=== PATIENT | female | born 1985 | race African-American/Black ===

== ENCOUNTER 2016-05-19 07:17 | Emergency (ER) | payer OTHER ==
[~2016-05-19] VITALS: Ht 162.6 cm; Wt 92.5 kg
[~2016-05-19 07:17] MED LIST: BENADRYL50 MG PO; DOXYCYCLINE HY100 MG PO; FLEXERIL10 MG PO; HYCODAN SYRUP480 ML PO; KLONOPIN0.5 M1 PO; MOTRIN800 MG PO; ROBITUSSIN AC,T10 ML PO; VENTOLIN HFA18 GM IH
[2016-05-19] MEDS ORDERED: FLONASE16 G1 BOTH NARES (09:10)
[2016-05-19] MEDS ORDERED: ROBITUSSIN NIG118 ML PO (09:10)
[2016-05-19] MEDS ORDERED: MUCUS ER600 MG PO (09:10)
[2016-05-19] MEDS ORDERED: IBUPROFEN800 MG PO (09:10)
[2016-05-19] MEDS ORDERED: TESSALON PERLE100 MG PO (09:10)
[2016-05-19 09:23] VITALS: BP 104/68
== END 2016-05-19 09:26 | disposition home or self-care (01) ==
LOC: EME 07:17
DX: J06.9 Acute upper respiratory infection, unspecified (principal); J00 Acute nasopharyngitis [common cold]; B97.89 Other viral agents as the cause of diseases classified elsewhere
CPT/HCPCS: 87651 90; 99281; 99284; J1885

== ENCOUNTER 2017-01-18 21:36 | Emergency (ER) | payer OTHER ==
[~2017-01-18] VITALS: Ht 160 cm; Wt 93.3 kg
[~2017-01-18 21:36] MED LIST changes: +FLONASE16 G1 BOTH NARES; +IBUPROFEN800 MG PO; +MUCUS ER600 MG PO; +ROBITUSSIN NIG118 ML PO; +TESSALON PERLE100 MG PO
[2017-01-18 21:42] VITALS: BP 108/78
[2017-01-18] MEDS ORDERED: MOTRIN600 MG PO (22:38)
== END 2017-01-18 22:55 | disposition home or self-care (01) ==
LOC: EME 21:36
DX: S80.12XA Contusion of left lower leg, initial encounter (principal); V47.5XXA Car driver injured in collision with fixed or stationary object in traffic accident, initial encounter; Y92.481 Parking lot as the place of occurrence of the external cause
CPT/HCPCS: 73590; 99281; 99283

== ENCOUNTER 2017-06-26 12:57 | Observation (INO) | payer OTHER ==
[~2017-06-26] VITALS: Ht 160 cm; Wt 91.6 kg
[~2017-06-26 12:57] MED LIST changes: +MOTRIN600 MG PO
[2017-06-26 17:00] LABS: CHLORIDE 107 mEq/L (99-109); POTASSIUM 3.6 mEq/L (3.7-5.4); SODIUM 138 mEq/L (136-147)
[2017-06-26 17:02] LABS: GLUCOSE 92 mg/dL (70-99)
[2017-06-26 17:06] LABS: CREATININE 0.7 mg/dL (0.6-1.3); GFR ESTIMATE (CALCULATED) > 59 mL/min/
[2017-06-26 17:07] LABS: UREA NITROGEN (BUN) 9 mg/dL (9-23)
[2017-06-26 17:08] LABS: HEMATOCRIT 17.1 % (36.0-46.0); HEMOGLOBIN 4.4 G/DL (11.9-15.5); MCH 17.1 PG (29.0-34.0); MCHC 25.7 G/DL (30.0-36.0); MCV 66.3 FL (83-99); NRBC (%) 0.3 /100 WBC (0-0); PLATELET COUNT 605 K/uL (156-360); RBC DIS.WIDTH-CV 33.7 % (11.8-14.6); RBC DIS.WIDTH-SD 78.6 % (39-53); RED BLOOD COUNT 2.58 M/uL (3.80-5.20); WHITE BLOOD COUNT 8.9 K/uL (4.1-10.2)
[2017-06-26 17:34] LABS: TROP-I INTERPRETATION NEGATIVE; TROPONIN-I < 0.01 ng/mL (0.0-0.30)
[2017-06-26 19:15] LABS: INTER. NORMALIZED RATIO 1.1
[2017-06-26 19:16] LABS: ALBUMIN 4.3 g/dL (3.2-4.8)
[2017-06-26 19:18] LABS: PTT 28.2 SEC (25-37)
[2017-06-26 19:19] LABS: TOTAL PROTEIN 7.2 g/dL (6.4-8.3)
[2017-06-26 19:21] LABS: TOTAL BILIRUBIN 1.1 mg/dL (0.0-1.0)
[2017-06-26 19:22] LABS: ALKALINE PHOSPHATASE 51 IU/L (3-129)
[2017-06-26] MEDS ORDERED: MOTRIN800 MG PO (19:23)
[2017-06-26 19:24] LABS: AST (GOT) 11 IU/L (2-34); DIRECT BILIRUBIN 0.4 mg/dL (0.0-0.3)
[2017-06-26 19:25] LABS: ALT (GPT) 5 IU/L (3-49)
[2017-06-26 22:25] VITALS: BP 124/73
[2017-06-26 23:08] VITALS: BP 108/56
[2017-06-27] VITALS (16 sets, daily range): BP systolic 112–129; BP diastolic 57–81
[2017-06-27 05:00] LABS: CHLORIDE 110 mEq/L (99-109); POTASSIUM 3.3 mEq/L (3.7-5.4); SODIUM 139 mEq/L (136-147)
[2017-06-27 05:01] LABS: GLUCOSE 97 mg/dL (70-99)
[2017-06-27 05:05] LABS: CREATININE 0.7 mg/dL (0.6-1.3); GFR ESTIMATE (CALCULATED) > 59 mL/min/
[2017-06-27 05:06] LABS: UREA NITROGEN (BUN) 5 mg/dL (9-23)
[2017-06-27 05:08] LABS: TROP-I INTERPRETATION NEGATIVE; TROPONIN-I < 0.01 ng/mL (0.0-0.30)
[2017-06-27 09:31] LABS: HEMATOCRIT 24.7 % (36.0-46.0)
[2017-06-27 09:37] LABS: MCV 73.3 FL (83-99)
[2017-06-27 13:01] LABS: SOURCE URINE
[2017-06-27 20:02] LABS: HEMATOCRIT 29.4 % (36.0-46.0); HEMOGLOBIN 8.8 G/DL (11.9-15.5); MCV 75.6 FL (83-99)
[2017-06-28 06:02] LABS: HEMATOCRIT 31.9 % (36.0-46.0); HEMOGLOBIN 9.2 G/DL (11.9-15.5); MCHC 28.8 G/DL (30.0-36.0); MCV 76.5 FL (83-99); NRBC (%) 0.5 /100 WBC (0-0); PLATELET COUNT 631 K/uL (156-360); RBC DIS.WIDTH-CV 29.7 % (11.8-14.6); RBC DIS.WIDTH-SD 78.1 % (39-53); WHITE BLOOD COUNT 10.6 K/uL (4.1-10.2)
[2017-06-28 06:14] LABS: MCH 22.1 PG (29.0-34.0); RED BLOOD COUNT 4.17 M/uL (3.80-5.20)
[2017-06-28 06:29] LABS: CHLORIDE 108 MEQ/L (99-109); CREATININE 0.8 MG/DL (0.6-1.3); GFR ESTIMATE (CALCULATED) > 59 mL/min/; GLUCOSE 94 mg/dL (70-99); SODIUM 141 MEQ/L (136-147); UREA NITROGEN (BUN) 5 mg/dL (9-23)
[2017-06-28 06:30] LABS: POTASSIUM 4.2 MEQ/L (3.7-5.4)
[2017-06-28 07:00] LABS: TROP-I INTERPRETATION NEGATIVE; TROPONIN-I < 0.01 ng/mL (0.0-0.30)
[2017-06-28 08:22] VITALS: BP 128/67
[2017-06-28] MEDS ORDERED: FERROUS SULFAT325 MG PO (11:36)
[2017-06-28] MEDS ORDERED: DULCOLAX10 MG PR (11:36)
[2017-06-28] MEDS ORDERED: ASCORBIC ACID500 M3 PO (11:36)
[2017-06-28] MEDS ORDERED: COLACE100 MG PO (11:36)
[2017-06-28 12:53] VITALS: BP 129/67
[2017-06-28 14:29] LABS: LYME DISEASE SEROLOGY SCREEN NEGATIVE (NEGATIVE)
[2017-06-29 13:19] LABS: CHLAMYDIA TRACHOMATIS NEGATIVE; NEISSERIA GONORRHOEAE NEGATIVE
== END 2017-06-28 17:14 | disposition home or self-care (01) ==
LOC: EME 12:57 → EDOF 20:18 → 5SOUTH 20:18 → ENRESERV 20:29 → 5SOUTH 21:52
PROVIDERS: Hospitalist; Internal Medicine; Internal Medicine Cardiovascular Disease; Nurse Practitioner Family; Obstetrics & Gynecology
PROC: 30233N1 Transfusion of Nonautologous Red Blood Cells into Peripheral Vein, Percutaneous Approach (ICD-10-PCS; principal; 2017-06-26)
DX: D64.9 Anemia, unspecified (principal); N92.0 Excessive and frequent menstruation with regular cycle; K59.00 Constipation, unspecified; I44.1 Atrioventricular block, second degree; D69.6 Thrombocytopenia, unspecified; R51 Headache; R42 Dizziness and giddiness; R07.89 Other chest pain
CPT/HCPCS: 70450; 71046; 74018; 76856; 80048; 80076; 84443; 84484; 84702; 85014; 85018; 85027; 85610; 85730; 86618; 86850; 86900; 86901; 86920; 87491; 87591; 93005; 93306; 99281; 99285; G0378; J7030; P9016

== ENCOUNTER 2017-10-27 05:16 | Emergency (ER) | payer OTHER ==
[~2017-10-27] VITALS: Ht 157.5 cm; Wt 100.4 kg
[~2017-10-27 05:16] MED LIST changes: +ASCORBIC ACID500 M3 PO; +COLACE100 MG PO; +DULCOLAX10 MG PR; +FERROUS SULFAT325 MG PO
[2017-10-27 06:19] LABS: HEMATOCRIT 32.9 % (36.0-46.0); HEMOGLOBIN 9.7 G/DL (11.9-15.5); MCH 21.3 PG (29.0-34.0); MCHC 29.5 G/DL (30.0-36.0); MCV 72.1 FL (83-99); PLATELET COUNT 369 K/uL (156-360); RBC DIS.WIDTH-CV 18.3 % (11.8-14.6); RBC DIS.WIDTH-SD 46.8 % (39-53); RED BLOOD COUNT 4.56 M/uL (3.80-5.20); WHITE BLOOD COUNT 8.8 K/uL (4.1-10.2)
[2017-10-27 06:25] LABS: ALBUMIN 3.9 g/dL (3.2-4.8); CHLORIDE 108 mEq/L (99-109); POTASSIUM 3.8 mEq/L (3.7-5.4); SODIUM 138 mEq/L (136-147)
[2017-10-27 06:27] LABS: GLUCOSE 96 mg/dL (70-99)
[2017-10-27 06:29] LABS: TOTAL BILIRUBIN 0.7 mg/dL (0.0-1.0)
[2017-10-27 06:31] LABS: ALKALINE PHOSPHATASE 41 IU/L (3-129); CREATININE 0.7 mg/dL (0.6-1.3); GFR ESTIMATE (CALCULATED) > 59 mL/min/
[2017-10-27 06:32] LABS: UREA NITROGEN (BUN) 10 mg/dL (9-23)
[2017-10-27 06:33] LABS: AST (GOT) 9 IU/L (2-34)
[2017-10-27 06:34] LABS: ALT (GPT) 9 IU/L (3-49)
[2017-10-27 06:40] LABS: QUANTITATIVE HCG < 4.0 MIU/ML
[2017-10-27] MEDS ORDERED: NAPROSYN500 MG PO (07:32)
[2017-10-27 08:00] VITALS: BP 135/70
== END 2017-10-27 08:02 | disposition home or self-care (01) ==
LOC: EME 05:16
DX: N92.0 Excessive and frequent menstruation with regular cycle (principal); D64.9 Anemia, unspecified; Z79.3 Long term (current) use of hormonal contraceptives; F32.9 Major depressive disorder, single episode, unspecified; F41.9 Anxiety disorder, unspecified
CPT/HCPCS: 80053; 81003; 84702; 85027; 99281; 99284

== ENCOUNTER 2017-12-17 20:36 | Emergency (ER) | payer OTHER ==
[~2017-12-17] VITALS: Ht 160 cm; Wt 96.8 kg
[~2017-12-17 20:36] MED LIST changes: +NAPROSYN500 MG PO
[2017-12-17] MEDS ORDERED: FLEXERIL5 MG PO (22:00)
[2017-12-17 22:13] VITALS: BP 136/81
[2017-12-21] MEDS ORDERED: FEOSOL325 MG PO (09:20)
[2017-12-21] MEDS ORDERED: PHENTERMINE HCL30 MG PO (09:21)
[2017-12-21] MEDS ORDERED: SPRINTEC1 EACH PO (09:23)
[2017-12-21] MEDS ORDERED: FLEXERIL5 MG PO (09:37)
== END 2017-12-17 22:14 | disposition home or self-care (01) ==
LOC: EME 20:36
DX: S16.1XXA Strain of muscle, fascia and tendon at neck level, initial encounter (principal); S80.01XA Contusion of right knee, initial encounter; S39.012A Strain of muscle, fascia and tendon of lower back, initial encounter; V43.53XA Car driver injured in collision with pick-up truck in traffic accident, initial encounter; Y92.488 Other paved roadways as the place of occurrence of the external cause
CPT/HCPCS: 72040; 99281; 99283